=== PATIENT | male | born 1975 | race African-American/Black ===

== ENCOUNTER → 2016-12-26 | Outpatient (CLI) | payer MEDICAID ==
[~2016-12-26] MED LIST: AMLO5TAB2 PO; ASPI-621 PO; CARV12.52 PO; LISI-170 PO; SPIR25TA PO
== END | disposition home or self-care (01) ==
LOC: CVU 09:02
PROVIDERS: ATTEND Internal Medicine Cardiovascular Disease
DX: I11.0 Hypertensive heart disease with heart failure (principal); I50.33 Acute on chronic diastolic (congestive) heart failure
CPT/HCPCS: 93306

== ENCOUNTER 2017-08-28 18:13 | Emergency (ER) | payer MEDICAID ==
[~2017-08-28] VITALS: Ht 177.8 cm; Wt 120.7 kg
[2017-08-28 19:03] LABS: HEMATOCRIT 46.3 % (39.2-51.8); HEMOGLOBIN 15.3 g/dL (13.7-18.0); WHITE BLOOD COUNT 4.4 x10^3/uL (3.4-10)
[2017-08-28 19:16] LABS: IS PT STATUS REG ER OR PRE ER? YES
[2017-08-28] MEDS ORDERED: ALLO300T PO (19:21)
[2017-08-28] MEDS ORDERED: ALLO100T64 PO (19:21)
[2017-08-28 19:35] LABS: BLOOD UREA NITROGEN 18 mg/dL (7-18)
[2017-08-28 20:39] VITALS: BP 170/77
== END 2017-08-28 20:40 | disposition home or self-care (01) ==
LOC: ED 20:34
DX: R05 Cough (principal); R07.81 Pleurodynia; I11.0 Hypertensive heart disease with heart failure; I50.9 Heart failure, unspecified; I25.2 Old myocardial infarction
CPT/HCPCS: 36415; 71010; 80048; 82040; 83880; 84484; 85025; 93005; 99285

== ENCOUNTER 2018-06-17 16:05 | Emergency (ER) | payer MEDICAID, OTHER ==
[~2018-06-17] VITALS: Ht 180.3 cm; Wt 121.0 kg
[~2018-06-17 16:05] MED LIST changes: +ALLO100T64 PO; +ALLO300T PO; -AMLO5TAB2 PO; +AMLO5TAB7 PO
[2018-06-17] MEDS ORDERED: ASPIRIN 81 MG TABLET CHEW ONE (16:25)
[2018-06-17] MEDS ORDERED: ASPIRIN 81 MG TABLET CHEW PO ONE (16:30)
[2018-06-17 16:34] LABS: BASOPHILS # (AUTO) 0.03 x10^3/uL (0-0.1); BASOPHILS % (AUTO) 1 % (0-1); EOSINOPHILS # (AUTO) 0.07 x10^3/uL (0-0.4); EOSINOPHILS % (AUTO) 1 % (1-7); LYMPHOCYTES # (AUTO) 2.82 x10^3/uL (1-3.4); LYMPHOCYTES % (AUTO) 45 % (22-44); MD NO; MEAN CORPUSCULAR HEMOGLOBIN 30.4 pg (27.5-34.5); MEAN CORPUSCULAR VOLUME 89.5 fL (81-97); MEAN PLATELET VOLUME 7.9 fL (7.4-10.4); MONOCYTES # (AUTO) 0.52 x10^3/uL (0.2-0.8); MONOCYTES % (AUTO) 8 % (2-9); NEUTROPHILS # (AUTO) 2.83 x10^3/uL (1.8-6.8); NEUTROPHILS % (AUTO) 45 % (42-75); PLATELET COUNT 258 x10^3/uL (130-400); RED BLOOD COUNT 5.31 x10^6/uL (4.38-5.82); RED CELL DISTRIBUTION WIDTH 15.4 % (9.4-14.8)
[2018-06-17] MEDS ORDERED: CARV-39 PO (16:36)
[2018-06-17] MEDS ORDERED: AMLO10TA6 PO (16:37)
[2018-06-17] MEDS ORDERED: SPIR25TA5 PO (16:37)
[2018-06-17] MEDS ORDERED: IRBE300T16 PO (16:38)
[2018-06-17 16:44] LABS: ALANINE AMINOTRANSFERASE 96 U/L (12-78); ALBUMIN 3.9 g/dL (3.4-5.0); ANION GAP 8 mmol/L (5-15); CALCIUM 8.5 mg/dL (8.5-10.1); CHLORIDE 107 mmol/L (98-107); CREATININE 1.44 mg/dL (0.7-1.3)
[2018-06-17 16:48] LABS: ALKALINE PHOSPHATASE 64 U/L (45-117); BILIRUBIN,TOTAL 1.3 mg/dL (0.2-1.0); TOTAL PROTEIN 7.4 g/dL (6.4-8.2); TROPONIN I < 0.015 ng/mL (0.000-0.045)
[2018-06-17 17:33] VITALS: BP 175/117
== END 2018-06-17 17:45 | disposition home or self-care (01) ==
LOC: ED 17:09
DX: R07.89 Other chest pain (principal); I11.0 Hypertensive heart disease with heart failure; I50.9 Heart failure, unspecified; M10.9 Gout, unspecified
CPT/HCPCS: 36415; 71045; 80053; 83880; 84484; 85025; 93005; 99285

== ENCOUNTER 2019-04-09 09:23 | Outpatient (CLI) | payer MEDICAID ==
[~2019-04-09 09:23] MED LIST changes: +AMLO-150 PO; +AMLO10TA8 PO; -AMLO5TAB7 PO; -ASPI-621 PO; +ASPI81TA45 PO; +CARV-39 PO; +IRBE300T16 PO; +SPIR25TA5 PO
== END 2019-04-09 23:59 | disposition home or self-care (01) ==
LOC: CVU 09:23
PROVIDERS: ATTEND Internal Medicine Cardiovascular Disease
DX: I34.0 Nonrheumatic mitral (valve) insufficiency (principal)
CPT/HCPCS: 0399T; 93306

== ENCOUNTER → 2020-05-04 | Outpatient (CLI) | payer MEDICAID ==
[~2020-05-04] MED LIST changes: -IRBE300T16 PO; +IRBE300T8 PO; +REGADENOSON 0.4 MG/5 ML SYRINGE ONE
== END | disposition home or self-care (01) ==
LOC: CFH 07:44
PROVIDERS: ATTEND Internal Medicine Cardiovascular Disease
DX: I25.89 Other forms of chronic ischemic heart disease (principal); I10 Essential (primary) hypertension; I49.9 Cardiac arrhythmia, unspecified
CPT/HCPCS: 78452; 93017; 93306; A9502; J2785

== ENCOUNTER 2020-07-16 07:25 | Day surgery (SDC) | payer MEDICAID ==
[~2020-07-16] VITALS: Ht 180.3 cm; Wt 128.6 kg
[~2020-07-16 07:25] MED LIST changes: +AMLO-211 PO; -AMLO10TA8 PO; -REGADENOSON 0.4 MG/5 ML SYRINGE ONE
[2020-07-16 08:00] VITALS: BP 154/122
[2020-07-16] MEDS ORDERED: SODIUM CHLORIDE 0.9% 1,000 ML IV ONE (08:00)
[2020-07-16] MEDS ORDERED: LOSA100T14 PO (08:11)
[2020-07-16] MEDS ORDERED: ALLO300T PO (08:11)
[2020-07-16] MEDS ORDERED: SPIR25TA5 PO (08:11)
[2020-07-16] MEDS ORDERED: COLC0.6C PO-COUM (08:11)
[2020-07-16] MEDS ORDERED: CLON0.1T22 PO (08:11)
[2020-07-16] MEDS ORDERED: Diabetic Med PO (08:12)
[2020-07-16 08:26] LABS: BASOPHILS % (AUTO) 1 % (0-1); EOSINOPHILS % (AUTO) 1 % (1-7); LYMPHOCYTES % (AUTO) 42 % (22-44); MEAN CORPUSCULAR HEMOGLOBIN 30.4 pg (27.5-34.5); MEAN CORPUSCULAR HGB CONC 33.5 g/dL (33.2-36.2); MEAN PLATELET VOLUME 8.1 fL (7.4-10.4); MONOCYTES % (AUTO) 11 % (2-9); NEUTROPHILS % (AUTO) 46 % (42-75); PLATELET COUNT 294 x10^3/uL (130-400); RED BLOOD COUNT 5.41 x10^6/uL (4.38-5.82); RED CELL DISTRIBUTION WIDTH 14.1 % (9.4-14.8)
[2020-07-16 08:32] LABS: ANION GAP 6 mmol/L (5-15); CALCIUM 8.8 mg/dL (8.5-10.1); CHLORIDE 104 mmol/L (98-107); CREATININE 1.23 mg/dL (0.7-1.3)
[2020-07-16 08:41] LABS: MD NO
== END 2020-07-16 09:37 | disposition home or self-care (01) ==
LOC: CACL 07:25
PROVIDERS: ATTEND Internal Medicine Cardiovascular Disease
DX: I42.8 Other cardiomyopathies (principal); Z53.8 Procedure and treatment not carried out for other reasons; U07.1 COVID-19; E78.5 Hyperlipidemia, unspecified; I11.0 Hypertensive heart disease with heart failure; I50.22 Chronic systolic (congestive) heart failure; E66.9 Obesity, unspecified; E11.9 Type 2 diabetes mellitus without complications; F32.9 Major depressive disorder, single episode, unspecified; M10.9 Gout, unspecified; M19.90 Unspecified osteoarthritis, unspecified site; Z79.899 Other long term (current) drug therapy; Z98.890 Other specified postprocedural states; Z72.89 Other problems related to lifestyle; Z68.39 Body mass index [BMI] 39.0-39.9, adult
CPT/HCPCS: 36415; 80048; 85025; 87635

== ENCOUNTER 2020-07-29 06:38 | Day surgery (SDC) | payer MEDICAID ==
[~2020-07-29] VITALS: Ht 180.3 cm; Wt 121.8 kg
[~2020-07-29 06:38] MED LIST changes: +CLON0.1T22 PO; +COLC0.6C PO-COUM; +Diabetic Med PO; +LOSA100T14 PO
[2020-07-29 07:03] VITALS: BP 156/101
[2020-07-29] MEDS ORDERED: BUPR300T94 PO (07:16)
[2020-07-29] MEDS ORDERED: METF500T17 PO (07:16)
[2020-07-29] MEDS ORDERED: PLEASE ENTER HEIGHT AND WEIGHT MC SCH (07:30)
[2020-07-29] MEDS ORDERED: FENTANYL PF 100 MCG/2ML ONE ×2 (07:32→09:37)
[2020-07-29] MEDS ORDERED: LIDOCAINE-MPF 1%, 5ML ONE (07:32)
[2020-07-29] MEDS ORDERED: MIDAZOLAM 1 MG/ML, 5ML ONE (07:32)
[2020-07-29] MEDS ORDERED: NITROGLYCERIN 30 MCG/ML, 20ML VIAL ONE (07:33)
[2020-07-29] MEDS ORDERED: HEPARIN 1,000 UNITS/ML, 10ML ONE (07:33)
[2020-07-29] MEDS ORDERED: VERAPAMIL 2.5 MG/ML, 2ML ONE (07:39)
[2020-07-29 07:42] LABS: ANION GAP 7 mmol/L (5-15); CALCIUM 8.3 mg/dL (8.5-10.1); CHLORIDE 106 mmol/L (98-107); CREATININE 1.75 mg/dL (0.7-1.3)
[2020-07-29] MEDS ORDERED: METOPROLOL 1 MG/ML, 5ML ONE (07:57)
[2020-07-29] MEDS ORDERED: ACETAMINOPHEN 325 MG TABLET ONE (08:56)
[2020-07-29] MEDS: SODIUM CHLORIDE 0.9% 1,000 ML IV SCH ×2 (08:57→09:01)
[2020-07-29] MEDS ORDERED: ACETAMINOPHEN 325 MG TABLET PO ONE (09:00)
[2020-07-29] MEDS ORDERED: SODIUM CHLORIDE 0.45% 1,000 ML IV SCH (09:00)
[2020-07-29] MEDS ORDERED: FENTANYL PF 100 MCG/2ML IVPush PRN (10:00)
== END 2020-07-29 12:30 | disposition home or self-care (01) ==
LOC: CACL 06:38
PROVIDERS: ATTEND Internal Medicine Cardiovascular Disease
DX: I13.0 Hypertensive heart and chronic kidney disease with heart failure and stage 1 through stage 4 chronic kidney disease, or unspecified chronic kidney disease (principal); I50.22 Chronic systolic (congestive) heart failure; E11.22 Type 2 diabetes mellitus with diabetic chronic kidney disease; N18.9 Chronic kidney disease, unspecified; E78.5 Hyperlipidemia, unspecified; F32.9 Major depressive disorder, single episode, unspecified; I42.8 Other cardiomyopathies; M19.90 Unspecified osteoarthritis, unspecified site; M10.9 Gout, unspecified; E66.9 Obesity, unspecified; Z68.37 Body mass index [BMI] 37.0-37.9, adult; Z72.89 Other problems related to lifestyle; Z79.899 Other long term (current) drug therapy; Z79.84 Long term (current) use of oral hypoglycemic drugs
CPT/HCPCS: 36415; 80048; 93458; 99156; C1769; C1894; J1644; J2250; J3010; Q9967; J7030

== ENCOUNTER → 2020-08-19 | Outpatient (CLI) | payer MEDICAID ==
[~2020-08-19] MED LIST changes: +BUPR300T94 PO; +METF500T17 PO
== END | disposition home or self-care (01) ==
LOC: CFH 15:47
PROVIDERS: ATTEND Physician Assistant
DX: I86.1 Scrotal varices (principal); I10 Essential (primary) hypertension; I42.8 Other cardiomyopathies; R36.1 Hematospermia
CPT/HCPCS: 76870; 93975

== ENCOUNTER 2020-09-01 14:07 | Emergency (ER) | payer MEDICAID ==
[~2020-09-01] VITALS: Ht 180.3 cm; Wt 119.2 kg
[2020-09-01 14:09] VITALS: BP 187/115
--- NOTE | 2020-09-01 14:25 | NUR ---
DC FROM TRIAGE
== END 2020-09-01 14:27 | disposition home or self-care (01) ==
LOC: ED 14:15
DX: K02.9 Dental caries, unspecified (principal); I11.0 Hypertensive heart disease with heart failure; I50.9 Heart failure, unspecified; I25.2 Old myocardial infarction; M10.9 Gout, unspecified
CPT/HCPCS: 99281

== ENCOUNTER 2021-01-03 16:49 | Observation (INO) | payer MEDICAID ==
[~2021-01-03] VITALS: Ht 180.3 cm; Wt 115.2 kg
--- NOTE | 2021-01-03 17:18 | NUR ---
PT CAME IN CO SOB, CHEST PAIN AND ARM NUMBNESS. PT HAD HX OF CHF. "ITS BEEN GOING ON FOR A WEEK OR TWO BUT I HAVE JUST BEEN PUTTING IT OFF BUT TODAY IT GOT BAD". EKG COMPLETE. PT CONNECTED TO MONITORING EQUIPMENT
[2021-01-03] MEDS ORDERED: NITROGLYCERIN SINGLE TAB 0.4 MG SL ONE (17:21)
[2021-01-03] MEDS ORDERED: ASPIRIN 81 MG TABLET CHEW ONE (17:21)
--- NOTE | 2021-01-03 17:24 | NUR ---
PT REPORT CP. SEE MAR FOR INTERVENTIONS
[2021-01-03] MEDS ORDERED: NITROGLYCERIN SINGLE TAB 0.4 MG SL PRN (17:30)
[2021-01-03] MEDS ORDERED: ASPIRIN 81 MG TABLET CHEW PO ONE (17:30)
[2021-01-03] MEDS ORDERED: SODIUM CHLORIDE FLUSH 10ML SYR IVF ONE (17:30)
[2021-01-03 17:39] LABS: BASOPHILS % (AUTO) 1 % (0-1); EOSINOPHILS % (AUTO) 1 % (1-7); LYMPHOCYTES % (AUTO) 34 % (22-44); MEAN CORPUSCULAR HEMOGLOBIN 30.1 pg (27.5-34.5); MEAN CORPUSCULAR HGB CONC 33.8 g/dL (33.2-36.2); MEAN PLATELET VOLUME 8.4 fL (7.4-10.4); MONOCYTES % (AUTO) 10 % (2-9); NEUTROPHILS % (AUTO) 54 % (42-75); PLATELET COUNT 211 x10^3/uL (130-400); RED BLOOD COUNT 5.23 x10^6/uL (4.38-5.82); RED CELL DISTRIBUTION WIDTH 15.8 % (9.4-14.8)
[2021-01-03 17:41] LABS: MD NO
[2021-01-03 17:44] LABS: ALBUMIN 3.6 g/dL (3.4-5.0); ANION GAP 5 mmol/L (5-15); CALCIUM 8.3 mg/dL (8.5-10.1); CHLORIDE 108 mmol/L (98-107); CREATININE 1.66 mg/dL (0.7-1.3)
[2021-01-03 17:48] LABS: TROPONIN I 0.039 ng/mL (0.000-0.045)
--- NOTE | 2021-01-03 18:51 | NUR ---
PT TBADM. PT EDUCATED ON PLAN OF CARE
[2021-01-03] MEDS ORDERED: SODIUM CHLORIDE FLUSH 10ML SYR IVF PRN (19:00)
[2021-01-03] MEDS ORDERED: HYDROcodone/APAP 5/325 TABLET PO PRN (19:30)
[2021-01-03] MEDS ORDERED: NITROGLYCERIN 0.4 MG BOTTLE (25 TABS) SL PRN (19:30)
[2021-01-03] MEDS ORDERED: morphine SULFATE 10 MG/ML, 1ML IV PRN (19:30)
[2021-01-03] MEDS ORDERED: ONDANSETRON 2MG/ML, 2ML IV PRN (19:30)
[2021-01-03] MEDS ORDERED: ACETAMINOPHEN 325 MG TABLET PO PRN (19:30)
[2021-01-03] MEDS ORDERED: NITROGLYCERIN 0.4 MG/SPRAY SL PRN (19:30)
[2021-01-03] MEDS ORDERED: BISACODYL 5 MG EC TABLET PO PRN (19:30)
[2021-01-03] MEDS ORDERED: FUROSEMIDE 40 MG/4 ML IV ONE (19:30)
[2021-01-03 19:35] LABS: CHOLESTEROL, TOTAL 134 mg/dL (140-239); TRIGLYCERIDES 213 mg/dL (50-200); VLDL CHOLESTEROL 43 mg/dL (0-25)
[2021-01-03 19:38] LABS: CHOL/HDL RATIO 4.1; HDL CHOL % 25 % (26-37); HDL CHOLESTEROL (DIRECT) 33 mg/dL (40-60); LDL CHOLESTEROL,CALCULATED 58 mg/dL (54-169); LDL/HDL RATIO 1.8 (0.5-3.0); TROPONIN I 0.031 ng/mL (0.000-0.045)
[2021-01-03 21:10] VITALS: BP 170/130
[2021-01-03] MEDS: CARVEDILOL 25 MG TABLET PO SCH (21:12)
[2021-01-03] MEDS: HEPARIN 5,000 UNITS/ML, 1ML SQ SCH (21:12)
[2021-01-03] MEDS: SODIUM CHLORIDE FLUSH 10ML SYR IVF SCH (21:13)
[2021-01-03 21:30] VITALS: BP 170/130
[2021-01-03 22:25] LABS: TROPONIN I 0.032 ng/mL (0.000-0.045)
[2021-01-04 01:17] VITALS: BP 147/97
[2021-01-04 05:28] LABS: MEAN CORPUSCULAR HEMOGLOBIN 30.2 pg (27.5-34.5); MEAN CORPUSCULAR HGB CONC 33.3 g/dL (33.2-36.2); MEAN PLATELET VOLUME 8.5 fL (7.4-10.4); PLATELET COUNT 207 x10^3/uL (130-400); RED BLOOD COUNT 5.33 x10^6/uL (4.38-5.82); RED CELL DISTRIBUTION WIDTH 15.5 % (9.4-14.8)
[2021-01-04 05:37] LABS: ANION GAP 4 mmol/L (5-15); CALCIUM 8.8 mg/dL (8.5-10.1); CHLORIDE 107 mmol/L (98-107); CREATININE 1.62 mg/dL (0.7-1.3)
[2021-01-04] MEDS: HEPARIN 5,000 UNITS/ML, 1ML SQ SCH (05:42)
[2021-01-04] MEDS ORDERED: ASPIRIN 325 MG TABLET EC PO SCH (06:00)
[2021-01-04 06:44] VITALS: BP 150/102
[2021-01-04] MEDS ORDERED: REGADENOSON 0.4 MG/5 ML SYRINGE ONE (08:28)
[2021-01-04] MEDS ORDERED: ACETAMINOPHEN 325 MG TABLET PO PRN (08:30)
[2021-01-04] MEDS: CARVEDILOL 25 MG TABLET PO SCH (08:56)
[2021-01-04] MEDS: SODIUM CHLORIDE FLUSH 10ML SYR IVF SCH (08:57)
[2021-01-04] MEDS ORDERED: ALLOPURINOL 300 MG TABLET PO SCH (09:00)
[2021-01-04] MEDS ORDERED: AMLODIPINE 10 MG TAB PO SCH (09:00)
[2021-01-04] MEDS ORDERED: LOSARTAN 100 MG TAB PO SCH (09:00)
[2021-01-04] MEDS ORDERED: SPIRONOLACTONE 25 MG TABLET PO SCH (09:00)
[2021-01-04] MEDS ORDERED: ISOSORBIDE DINITRATE 10 MG TABLET PO SCH (09:00)
[2021-01-04] MEDS ORDERED: HYDR-3341 PO (12:32)
[2021-01-04] MEDS ORDERED: ISOS10TA2 PO (12:32)
[2021-01-04 13:59] VITALS: BP 130/74
[2021-01-04] MEDS ORDERED: ASPI81TA45 PO (16:39)
[2021-01-04] MEDS ORDERED: ATOR40TA78 PO (16:39)
== END 2021-01-04 16:50 | disposition home or self-care (01) ==
LOC: ED 20:00 → EDIP 20:09 → 5SO 20:46 → DCLOUNGE 01-04 16:44
PROVIDERS: ADMIT Family Medicine; ATTEND Internal Medicine
DX: R07.89 Other chest pain (principal); I25.5 Ischemic cardiomyopathy; I20.0 Unstable angina; I13.0 Hypertensive heart and chronic kidney disease with heart failure and stage 1 through stage 4 chronic kidney disease, or unspecified chronic kidney disease; I50.9 Heart failure, unspecified; N18.30 Chronic kidney disease, stage 3 unspecified; M10.9 Gout, unspecified; G47.30 Sleep apnea, unspecified; E66.01 Morbid (severe) obesity due to excess calories; I25.2 Old myocardial infarction; Z79.899 Other long term (current) drug therapy; Z86.16 Personal history of COVID-19
CPT/HCPCS: 36415; 71045; 78452; 80048; 80061; 82040; 83880; 84484; 85025; 85027; 93005; 93017; 93306; 93356; 96372; 96374; 99285; A9502; G0378; J1644; J1940; J2785